=== PATIENT | male | born 1940 | race Caucasian/White ===

== ENCOUNTER 2017-05-13 08:19 | Observation (INO) | payer OTHER, BC ==
[2017-05-13] MEDS ORDERED: diphenhydrAMINE 25 MG CAP PO ONE (08:21)
[2017-05-13] MEDS ORDERED: BACITRACIN IRRIGATION/NS 50,000 UNITS/1,000 ML BTL IRR ONE (08:21)
[2017-05-13] MEDS ORDERED: DIAZEPAM 5 MG TAB PO ONE (08:21)
[2017-05-13] MEDS ORDERED: NS 1,000 ML IV ONE (08:21)
[2017-05-13] MEDS ORDERED: ceFAZolin 2 GM/DEXTROSE 100 ML IV ONE (08:21)
--- NOTE | 2017-05-13 08:47 | CPEKG ---
Heart Rate: 48 RR Interval: 1250 P-R Interval: 196 QRSD Interval: 80 QT Interval: 440 QTC Interval: 394 P [place]: 22 QRS [place]: 44 T Wave [place]: 116 EKG Severity - ABNORMAL ECG - EKG Impression: SINUS BRADYCARDIA EKG Impression: ANTERIOR INFARCT, AGE INDETERMINATE Electronically Signed By: Taras Obrien 13-May-2017 08:54:47
[2017-05-13 09:01] LABS: % IMMATURE GRANULYOCYTES 0.4 % (0.0-1.1); ABSOLUTE IMMATURE GRANULOCYTES 0.02 10^3/uL (0.00-0.10); ADD DIFF? NO; ADD MORPH? NO; ADD SCAN? NO; ATYPICAL LYMPHOCYTE FLAG 10 (0-99); FRAGMENT RBC FLAG 0 (0-99); HEMATOCRIT 41.7 % (40.0-51.0); HEMOGLOBIN 13.9 g/dL (13.7-17.5); LEFT SHIFT FLG 0 (0-99); LIPEMIA HEMOLYSIS FLAG 80 (0-99); MEAN CELL HEMOGLOBIN CONCENTR. 33.3 g/dL (32.4-36.7); MEAN CELL VOLUME 92.9 fL (81.5-99.8); MEAN PLATELET VOLUME 10.2 fL (8.7-11.7); PLATELET CLUMPS FLAG 0 (0-99); PLATELET COUNT 246 10^3/uL (150-400); RED BLOOD CELL COUNT 4.49 10^6/uL (4.40-6.38); RED CELL DISTRIBUTION WIDTH 13.8 % (11.5-15.2)
[2017-05-13 09:20] LABS: ANION GAP 10 mEq/L (8-16); CALCIUM 9.7 mg/dL (8.5-10.4); CARBON DIOXIDE 26 mEq/l (22-31); CHLORIDE 105 mEq/L (97-110); CREATININE 0.9 mg/dL (0.7-1.3); GLOMERULAR FILTRATION RATE > 60; GLUCOSE 99 mg/dL (70-100); POTASSIUM 4.6 mEq/L (3.5-5.2); SODIUM 141 mEq/L (134-144)
[2017-05-13 09:26] LABS: INR 1.05 (0.83-1.16); PROTIME(PATIENT) 13.6 SEC (12.0-15.0)
[2017-05-13] MEDS ORDERED: LIDO/EPI 1% **for epidural** 30 ML SDV ONE (10:06)
[2017-05-13] MEDS ORDERED: fentaNYL 100 MCG/2 ML INJ ONE ×2 (10:06→11:52)
[2017-05-13] MEDS ORDERED: MIDAZOLAM 2 MG/2 ML VIAL ONE ×3 (10:06→11:53)
[2017-05-13] MEDS ORDERED: LIDOCAINE 1% 300 MG/30 ML SDV ONE (10:06)
[2017-05-13] MEDS ORDERED: IOPAMIDOL (ISOVUE-370) 150 ML BTL IV ONE (10:07)
[2017-05-13] MEDS ORDERED: BUPIVACAINE 0.5% 30 ML SDV ONE (10:07)
[2017-05-13] MEDS ORDERED: ETOMIDATE 40 MG/20 ML INJ ONE (11:16)
--- NOTE | 2017-05-13 12:49 | CPEKG ---
Heart Rate: 60 RR Interval: 1000 P-R Interval: 144 QRSD Interval: 84 QT Interval: 416 QTC Interval: 416 QRS [place]: 0 T Wave [place]: 109 EKG Severity - ABNORMAL ECG - EKG Impression: ATRIAL-PACED RHYTHM EKG Impression: ANTERIOR INFARCT, AGE INDETERMINATE Electronically Signed By: Taras Obrien 14-May-2017 16:52:43
[2017-05-13] MEDS ORDERED: ONDANSETRON DISINTEGRATING 4 MG TAB PO PRN (16:23)
[2017-05-13] MEDS ORDERED: ACETAMINOPHEN 325 MG TAB PO PRN (16:23)
[2017-05-13] MEDS ORDERED: ONDANSETRON 4 MG/2 ML VIAL IVP PRN (16:23)
--- NOTE | 2017-05-13 17:28 | CPIP ---
[f rep st] INVASIVE CARDIAC PROCEDURE DATE OF PROCEDURE: 05/13/2017 PROCEDURE PERFORMED: Dual-chamber automatic implantable cardioverter defibrillator implantation. T he device is an MRI Conditional Biotronik [place] 7 DR-T DF-4 ProMRI 121050, serial number [id number]. The atrial lead is an MRI Conditional Solia S 45, serial number [id number]. The defibrillator lead i s a Biotronik Protego S 65, serial number [id number]. COMPLICATIONS: None. INDICATION FOR THE PROCEDURE: The patient has ischemic cardiomyopathy, status post anterior [place], wit h ejection fraction that is persistently low in spite of maximally tolerated medical therapy, includ ing Coreg, lisinopril, and spironolactone. The ejection fraction remains less than 35%, and he also has nonsustained VT and PVCs on EKG and telemetry monitoring. He also has requirement for beta-blo ckers to improve ischemic cardiomyopathy function over time and has symptomatic bradycardia which pr ompts the use of a dual-chamber AICD. PROCEDURE IN DETAIL: After informed consent was obtained, n.p.o. status was confirmed, the region o f the left subclavicular fossa was cleaned, prepped, and draped in sterile fashion. Approximately 1 5 cc of 1% lidocaine were utilized for local anesthesia. A #10 blade was used to sharply incise the skin. Electrocautery and local pressure were used for hemostasis. Sharp and blunt dissection were used to perform a pacer pocket overlying the pectoralis major fascia. The patient was placed in Tr endelenburg position. An 18-gauge Cook needle was used to gain access to the left subclavian vein x 2. J-wires were placed. The peel-away sheath was placed over the lateral wire, and the defibrillat or lead was advanced under direct fluoroscopic guidance into the right ventricular apex, and the set screw was screwed into place. The pacing threshold was found to be 0.6 at 0.4 milliseconds. R-wav e amplitude was sensed at 12 mV with a lead impedance of 693 ohms. The peel-away sheath was removed . The procedure was repeated for the medial wire, and the Biotronik Solia S 45 was then advanced un bisi direct fluoroscopic guidance, screwed into place in the right atrial appendage. Multiple sites were tested, and the best testing position was found to have a threshold of 0.8 at 0.4 with a P-wave amplitude of 2.2 and impedance of 462 ohms. The peel-away sheath was removed. The leads were sutu red in place with 0 Ethibond. The atrial lead serial number was checked and placed the upper pole l ead housing. Set screw firmly applied. The procedure was repeated for the Biotronik Protego lead a s well with set screw firmly applied. The device was sutured in place with 0 Ethibond, and the skin was closed with 3-layered 2-0 and 3-0 Vicryl, followed by 4-0 Monocryl subcuticular stitch. Excell ent wound edge apposition and hemostasis were documented. The patient returned to the post cath rec overy unit in good and stable condition status post dual-chamber AICD insertion for indications of s ymptomatic bradycardia on needed beta-tom therapy for ischemic cardiomyopathy in a patient meeti ng MADIT II criteria for an AICD implant. Please see the post implant interrogation for the setting s for antitachycardia pacing, ventricular monitoring and shock therapies. Copy requested to: Primary Care Physician /[id number]/MODL
[2017-05-13] MEDS: CARVEDILOL 25 MG TAB PO SCH (18:27)
[2017-05-13] MEDS: VALSARTAN 40 MG TAB PO SCH (20:37)
[2017-05-13] MEDS ORDERED: ATORVASTATIN CALCIUM 40 MG TAB PO SCH (21:00)
[2017-05-14] MEDS: VALSARTAN 40 MG TAB PO SCH ×2 (00:01→10:08)
[2017-05-14 04:27] LABS: % IMMATURE GRANULYOCYTES 0.5 % (0.0-1.1); ABSOLUTE IMMATURE GRANULOCYTES 0.04 10^3/uL (0.00-0.10); ADD DIFF? NO; ADD MORPH? NO; ADD SCAN? NO; ATYPICAL LYMPHOCYTE FLAG 0 (0-99); FRAGMENT RBC FLAG 0 (0-99); HEMATOCRIT 40.1 % (40.0-51.0); HEMOGLOBIN 13.4 g/dL (13.7-17.5); LEFT SHIFT FLG 0 (0-99); LIPEMIA HEMOLYSIS FLAG 80 (0-99); MEAN CELL HEMOGLOBIN 31.2 pg (27.9-34.1); MEAN CELL HEMOGLOBIN CONCENTR. 33.4 g/dL (32.4-36.7); MEAN CELL VOLUME 93.3 fL (81.5-99.8); MEAN PLATELET VOLUME 10.4 fL (8.7-11.7); PLATELET CLUMPS FLAG 0 (0-99); PLATELET COUNT 222 10^3/uL (150-400); RED CELL DISTRIBUTION WIDTH 13.5 % (11.5-15.2)
[2017-05-14 04:37] VITALS: PULSE 60
[2017-05-14 04:47] LABS: ANION GAP 6 mEq/L (8-16); CALCIUM 9.3 mg/dL (8.5-10.4); CARBON DIOXIDE 26 mEq/l (22-31); CHLORIDE 105 mEq/L (97-110); CREATININE 0.9 mg/dL (0.7-1.3); GLOMERULAR FILTRATION RATE > 60; GLUCOSE 86 mg/dL (70-100); POTASSIUM 4.6 mEq/L (3.5-5.2); SODIUM 137 mEq/L (134-144)
[2017-05-14 08:05] VITALS: BP 127/72; RESP 18; TEMP 98.4; O2SAT 93
--- NOTE | 2017-05-14 08:43 | CPEKG ---
Heart Rate: 60 RR Interval: 1000 P-R Interval: 192 QRSD Interval: 86 QT Interval: 388 QTC Interval: 388 QRS [place]: 92 T Wave [place]: 113 EKG Severity - ABNORMAL ECG - EKG Impression: ATRIAL-PACED RHYTHM EKG Impression: ANTERIOR INFARCT, AGE INDETERMINATE Electronically Signed By: Taras Obrien 14-May-2017 16:52:38
[2017-05-14] MEDS ORDERED: ASPIRIN 325 MG TAB PO SCH (09:00)
[2017-05-14] MEDS ORDERED: SPIRONOLACTONE 25 MG TAB PO SCH (09:00)
[2017-05-14] MEDS: CARVEDILOL 25 MG TAB PO SCH (10:06)
--- NOTE | 2017-05-14 13:06 | GDS ---
[f rep st] DISCHARGE SUMMARY ADMISSION DIAGNOSES: 1. Coronary artery disease, status post coronary artery bypass graft. 2. Ischemic cardiomyopathy with known ejection fraction of 25-30%. 3. Hyperlipidemia. DISCHARGE DIAGNOSES: 1. Coronary artery disease. 2. Ischemic cardiomyopathy. 3. Status post dual-lead automatic internal cardioverter-defibrillator Biotronik device implantatio n. 4. Ischemic cardiomyopathy. 5. Hyperlipidemia. PROCEDURES PERFORMED DURING HOSPITALIZATION: 1. Electrocardiogram. 2. Defibrillator implantation, Biotronik, with Biotronik atrial and right ventricular defibrillator leads. 3. Chest x-ray. 4. Device check done by [employer] rep this morning, showing device functioning within normal limits . BRIEF HISTORY: Please see H and P: The patient is a 76-year-old male who recently this was found t o have 3-vessel coronary artery disease and ischemic cardiomyopathy in [place]. He did unde rgo CABG at that time, in which 3 vessels were done. Postoperatively, his ejection fraction remaine d improved from 10% preoperatively to 25-30% postoperatively. He recently established care with our group, since returning to [place], in which he saw Dr. Britton. His ejection fraction remained unc hanged, despite maximum medical therapy, he tolerated maximum medical therapy, and due to his histor y of coronary artery disease and ischemic cardiomyopathy, the patient was found to be at high risk f or sudden cardiac , in which it was decided an AICD implantation should be done. The patient w as agreeable to proceed. The patient agreed with procedure. HOSPITAL COURSE: The patient was admitted to [facility], prepped for procedure, and taken to the cardiac c atheterization lab. There, Dr. Britton successfully implanted a dual-chamber AICD Biotronik with atr ial and RV defibrillator leads with no complications. He was taken back to the telemetry back to [facility] postprocedure and ultimately to the telemetry unit. His vital signs have remained stable sinc e his hospital admission. He denies of any chest pain or shortness of breath. He has been up and w alking the unit without any symptoms of angina or heart failure. He has remained on continuous card iac monitoring, showing atrial pace with intrinsic ventricular response, no malignant arrhythmias or pauses noted overnight. PHYSICAL EXAMINATION: GENERAL APPEARANCE: A medium built, well-groomed, male. He is karen rt and oriented to person, place, time, situation. Appears to be under no acute distress. CURRENT VITAL SIGNS: Blood pressure of 127/72, heart rate of 60, respirations 18, saturating 93% on room ai r, temperature of 36.9 degrees Celsius. HEENT: Head is normocephalic. Lips and tongue are pink an d moist with no signs of cyanosis. Conjunctivae are pink. NECK: Trachea is midline, +2 carotid pu lses bilateral, no auscultated bruits, no jugular vein distention. RESPIRATORY: Lungs are clear to auscultation. No rhonchi, rales or wheezes. No accessory muscle use. No intercostal muscle retra ction noted. CARDIAC: Regular rate, regular rhythm, S1, S2, no S3, S4, gallops, rubs or murmur not ed. ABDOMEN: Soft, nontender, bowel sounds x4 quadrants. No organomegaly. No palpable masses. S KIN: [place] and warm, dry, no cyanosis, no clubbing, no peripheral edema. VASCULAR: +2 carotids denzel ateral, +2 radials bilateral, +2 posterior tibial pulses bilateral. Pacemaker insertion site, left anterior chest, just distal to the clavicle. Incision intact with Steri-Strips, dressing change don e, no redness, swelling, drainage, ecchymosis or hematoma noted. LABORATORY STUDIES: Laboratory studies drawn today showing a WBC of 8.57, hemoglobin of 13.4, hemat ocrit of 40.1, platelet count of 222. Sodium 137, potassium 4.6, chloride 105, CO2 26, BUN 14, crea tinine 0.9, glucose 86, calcium 8.3. PROCEDURES: 1. AICD implantation, as mentioned above. 2. Chest x-ray done this morning one day post procedure showing no signs of heart failure, no acute cardiopulmonary process, no delayed pneumothorax. 3. Electrocardiogram done this morning shows atrial paced rhythm with noted Q-waves in V1 through V 4, possible anterior infarction. DISPOSITION: The patient will be discharged home in stable condition. DISCHARGE ACTIVITIES: 1. No strenuous activity for the next 2 weeks. 2. No lifting of the left arm higher than shoulder/heart. 3. No lifting more than 10 pounds with the left arm. DISCHARGE MEDICATIONS: Please see discharge medication reconciliation sheet. Note: Patient report ing to Dr. Britton on admission of having an ongoing cough since starting on lisinopril. This is bee n discontinued and he has been started on valsartan 40 mg p.o. twice daily. New prescription has be en given today. No change in the rest of his cardiac medications. DISCHARGE INSTRUCTIONS: 1. Post AICD implantation instructions went over with the patient and his , including monitorin g for signs of infection, activity restrictions, medication compliancy, and followup. 2. Patient does have a followup device and wound check next week in our office. 3. He has a [address] Britton. 4. He has been asked to get a basic metabolic panel done in 7-10 days after starting valsartan. At the time of discharge, patient verbalizes understanding of all instructions, and patient reports he has no further questions at this time. He has been told that if any problems or concerns come up postdischarge, he is to notify our office or return to the hospital. BILLING: Total time spent on discharge greater than 30 minutes. /[id number]/MODL
== END 2017-05-14 15:10 | disposition home or self-care (01) ==
LOC: FCATH 08:19 → F2W 12:40
PROVIDERS: ADMIT Internal Medicine Cardiovascular Disease; ATTEND Internal Medicine Cardiovascular Disease
PROC: 02HK3KZ Insertion of Defibrillator Lead into Right Ventricle, Percutaneous Approach (ICD-10-PCS; principal; 2017-05-13)
PROC: 0JH608Z Insertion of Defibrillator Generator into Chest Subcutaneous Tissue and Fascia, Open Approach (ICD-10-PCS; principal; 2017-05-13)
PROC: 02H63KZ Insertion of Defibrillator Lead into Right Atrium, Percutaneous Approach (ICD-10-PCS; principal; 2017-05-13)
DX: I25.5 Ischemic cardiomyopathy (principal); I25.10 Atherosclerotic heart disease of native coronary artery without angina pectoris; E78.5 Hyperlipidemia, unspecified; I25.2 Old myocardial infarction; Z95.1 Presence of aortocoronary bypass graft
CPT/HCPCS: 33249; 71010; 71020; 93005; C1721; C1777; C1898; J0690; J2250; J3010; Q9967

== ENCOUNTER → 2017-08-12 | Outpatient (CLI) | payer OTHER, BC | LOC: BHFA 10:45 | PROVIDERS: ATTEND Internal Medicine Cardiovascular Disease | DX: I50.9 Heart failure, unspecified (principal) ==

== ENCOUNTER → 2018-09-06 | Outpatient (CLI) | payer OTHER, BC | LOC: BHFA 10:00 | PROVIDERS: ATTEND Internal Medicine Cardiovascular Disease | DX: I25.10 Atherosclerotic heart disease of native coronary artery without angina pectoris (principal) ==